=== PATIENT | female | born 1980 | race Caucasian/White ===

== ENCOUNTER → 2017-09-22 | Outpatient (CLI) | payer OTHER | LOC: M LAB 07:49 | PROVIDERS: ATTEND Advanced Practice Midwife | DX: Z34.82 Encounter for supervision of other normal pregnancy, second trimester (principal) ==

== ENCOUNTER → 2017-09-25 | Outpatient (CLI) | payer OTHER ==
--- NOTE | 2017-09-25 09:05 | REP ---
Clinical: Growth evaluation (size greater than dates). Comparison: None . Findings: Examination demonstrates a single live advanced intrauterine in cephalic presentation. motion is identified by technologist. Placenta is noted posteriorly and grade I without evidence for placenta previa or abruption. Amniotic fluid volume is normal. No evidence for nuchal cord. Gestational age by current measurements 38 weeks 2 days with LONNIE 10/07/2017 . FHR equals 168 beats per minute. BPD 9.3 cm 37 weeks 6 days HC 34.0 cm 39 weeks 1 day AC 33.6 cm 37 weeks 4 days FL 7.4 cm 37 weeks 60 HL 6.7 of 38 weeks 6 days HC/AC ratio 1.01 Estimated weight 3314 grams ( 81st percentile). Amniotic fluid index equals 15.0 cm. (7.7 - 24.8). Impression: Single live advanced gestation demonstrating appropriate age/weight correlation. Signed by Kirby Abebe MD 09/25/2017 08:56 A
== END ==
LOC: M RAD 07:57
PROVIDERS: ATTEND Advanced Practice Midwife
DX: O26.843 Uterine size-date discrepancy, third trimester (principal); Z3A.38 38 weeks gestation of pregnancy

== ENCOUNTER → 2017-09-26 | Outpatient (REF) | payer OTHER | LOC: M LAB REF 17:21 | PROVIDERS: ATTEND Advanced Practice Midwife | DX: Z34.83 Encounter for supervision of other normal pregnancy, third trimester (principal) ==

== ENCOUNTER 2017-10-17 05:50 | Inpatient (IN) | payer OTHER ==
[~2017-10-17] VITALS: Ht 170.2 cm; Wt 125.0 kg
[2017-10-17] MEDS ORDERED: OXYTOCIN 30 UNITS IN 0.9% NaCl 500ML IV BAG (J2590) As Ordered ONE (06:22)
[2017-10-17 06:25] LABS: MEAN CORPUSCULAR HEMOGLOBIN 24.1 pg (27.0-33.0); MEAN CORPUSCULAR HGB CONC 32.2 g/dl (32.0-36.5); MEAN CORPUSCULAR VOLUME 75.1 fl (80.0-96.0); PLATELET COUNT, AUTOMATED 179 10^3/uL (150-450); RED CELL DISTRIBUTION WIDTH 15.9 % (11.5-14.5); WHITE BLOOD COUNT 13.6 10^3/uL (4.0-10.0)
[2017-10-17 06:26] VITALS: BP 143/93
--- NOTE | 2017-10-17 06:42 | HPE ---
DATE OF ADMISSION: 10/17/2017 HISTORY OF PRESENT ILLNESS: A 37-year-old 5, para 1-0-4-1 female at 39-2/7 weeks gestation by seven-week ultrasound, estimated date of confinement (EDC) 10/22/2017, presents with contractions every 3-4 minutes for the last hour. She had a small amount of bleeding. Contractions have become intense. COURSE: The patient initiated care in [place] at 34 weeks gestation on 09/15/2017. She had prior care out of town. course was unremarkable. OBSTETRICAL HISTORY: She had four spontaneous abortions, followed by a term vaginal delivery in July 2015, of a 7 pound 11 ounce female . MEDICAL HISTORY: Hypothyroidism. SURGICAL HISTORY: Dilation and curettage (D and C) 2006. ALLERGIES: None. SOCIAL HISTORY: The patient is . She denies cigarettes, alcohol or drug use during . FAMILY HISTORY: Noncontributory. PHYSICAL EXAMINATION: VITAL SIGNS: Blood pressure 134/74, pulse 84. GENERAL: She appears uncomfortable. HEAD/NECK: Normal. LUNGS: Clear. HEART: Regular rate and rhythm. ABDOMEN: Nontender, gravid. heart tones category one. STERILE VAGINAL EXAM: 9 cm, 100% effaced, -1 station. Contractions every three minutes. EXTREMITIES: Nontender. LABORATORY DATA: Blood type A positive. Rubella immune. RPR nonreactive. Hepatitis B and C negative. HIV negative. GBS negative on 09/26/2017. ASSESSMENT: A 37-year-old 5, para 1 female at 39-2/7 weeks gestation presents in active labor. The patient is admitted on 10/17/2017.
[2017-10-17 07:20] VITALS: BP 147/92
[2017-10-17] MEDS ORDERED: MEASLES,MUMPS,RUBELLA VACCINE INJ (MMR-II) (90707) SC SCH (07:30)
[2017-10-17] MEDS ORDERED: DOCUSATE SODIUM 100 MG CAP PO PRN (07:30)
[2017-10-17] MEDS ORDERED: RHOGAM 300 MCG (1500 IU) INJ (J2790) IM SCH (07:30)
[2017-10-17] MEDS ORDERED: METHYLERGONOVINE MALEATE 0.2 MG TAB PO PRN (07:30)
[2017-10-17] MEDS ORDERED: OXYTOCIN DRIP 30 UNITS in APPROPRIATE DILUENT 1 EA IV ONE (07:30)
[2017-10-17] MEDS ORDERED: ONDANSETRON 4MG/2ML VIAL (J2405) IV PRN (07:30)
[2017-10-17] MEDS ORDERED: LIDOCAINE 1% MDV INJ 50 ML VIAL INFIL ONE (07:30)
[2017-10-17] MEDS ORDERED: DIBUCAINE 1% OINTMENT 30GM TOP PRN (07:30)
[2017-10-17 07:40] VITALS: BP 138/73
[2017-10-17] MEDS: IBUPROFEN 800 MG TAB PO PRN ×2 (07:44→17:11)
[2017-10-17] MEDS: PRENATAL VITAMINS CHEWABLE TABLET PO SCH (07:45)
[2017-10-17 09:30] VITALS: BP 141/63
[2017-10-17] MEDS: ACETAMINOPHEN 500 MG TAB PO PRN ×2 (09:45→21:39)
[2017-10-17 18:00] VITALS: BP 119/70
[2017-10-18] MEDS: IBUPROFEN 800 MG TAB PO PRN ×2 (03:33→08:29)
[2017-10-18 06:01] VITALS: BP 116/61
[2017-10-18] MEDS ORDERED: IBUP-1114 PO (07:15)
[2017-10-18] MEDS ORDERED: PRENTAB9 PO (07:15)
[2017-10-18] MEDS ORDERED: ACET50TA PO (07:15)
[2017-10-18] MEDS: PRENATAL VITAMINS CHEWABLE TABLET PO SCH (08:29)
--- NOTE | 2017-10-18 17:12 | DN ---
DATE: 10/17/2017 PREDELIVERY DIAGNOSES: 39+ weeks, labor. POSTDELIVERY DIAGNOSIS: Delivered. PROCEDURE: Spontaneous vaginal delivery. COUNCILOR: Dr. Carroll Bennett ANESTHESIA: None. ESTIMATED BLOOD LOSS: 300 mL. FINDINGS: 8-pound 13-ounce male infant, scores 8 and 9. Direct occiput posterior in position. DELIVERY SUMMARY: After 20 minutes second stage, the patient had spontaneous delivery of an 8-pound 13-ounce male , scores 8 and 9 with no delivery anesthesia. The baby delivered in the direct occiput posterior position. The shoulders delivered with ease. There was no nuchal cord. The infant cried spontaneously and was handed to the mother. The cord was doubly clamped and cut. Placenta delivered spontaneously and appeared to be intact. Second-degree perineal laceration was repaired under local anesthesia in the usual fashion. A 1-2 cm hematoma of the perineal body was noted. This was left alone as it was not expanding. A first-degree anterior right labial laceration was repaired with local anesthesia with #3-0 chromic in the usual fashion. Sponge and needle counts were correct.
== END 2017-10-18 12:30 | disposition home or self-care (01) | DRG 775 ==
LOC: M LDO 05:50 → M LDI 06:06 → M OBS 09:27
PROVIDERS: ADMIT Specialist; ATTEND Specialist
PROC: 10E0XZZ Delivery of Products of Conception, External Approach (ICD-10-PCS; principal; 2017-10-17)
PROC: 0KQM0ZZ Repair Perineum Muscle, Open Approach (ICD-10-PCS; 2017-10-17)
PROC: 0HQ9XZZ Repair Perineum Skin, External Approach (ICD-10-PCS; 2017-10-17)
DX: O99.284 Endocrine, nutritional and metabolic diseases complicating childbirth (principal); Z37.0 Single live birth; Z3A.39 39 weeks gestation of pregnancy; O09.523 Supervision of elderly multigravida, third trimester; E03.9 Hypothyroidism, unspecified; O70.1 Second degree perineal laceration during delivery; O70.0 First degree perineal laceration during delivery